=== PATIENT | female | born 1950 | race Caucasian/White ===

== ENCOUNTER 2023-09-10 09:49 | Day surgery (SDC) | payer OTHER ==
[~2023-09-10] VITALS: Ht 147.3 cm; Wt 69.5 kg
[~2023-09-10 09:49] MED LIST: FAMO40TA3 PO; LIDOCAINE 2% 100MG/5ML SDV (FOR ANES.) As Ordered ONE; METO25TA4 PO; MIDAZOLAM INJ 2MG/2ML VIAL As Ordered ONE; ROCURONIUM BROMIDE 50MG/5ML VIAL As Ordered ONE; VIAC1CHW PO; VITA100093 PO; ceFAZolin SOD 2 GM in IV 1 EA IV ONE; fentaNYL 100 MCG/2 ML INJECTION As Ordered ONE; propofoL 200 MG/20 ML VIAL As Ordered ONE
[2023-09-10] MEDS ORDERED: LR 1,000 ML IV SCH ×2 (10:10→12:10)
[2023-09-10 11:02] LABS: BLOOD UREA NITROGEN 18 MG/DL (9-23); CALCIUM LEVEL 9.6 MG/DL (8.3-10.6); CARBON DIOXIDE LEVEL 27 MMOL/L (20-31); CHLORIDE LEVEL 105 MMOL/L (98-107); CREATININE FOR GFR 0.81 MG/DL (0.55-1.30); GLOMERULAR FILTRATION RATE > 60.0 (>39); GLUCOSE, FASTING 115 MG/DL (74-106); POTASSIUM SERUM 3.7 MMOL/L (3.5-5.1); SODIUM LEVEL 140 MMOL/L (136-145)
[2023-09-10] MEDS ORDERED: ACETAMINOPHEN 1000MG 100ML IV BAG As Ordered ONE (11:37)
[2023-09-10] MEDS ORDERED: fentaNYL 100 MCG/2 ML INJECTION As Ordered ONE (11:39)
[2023-09-10] MEDS ORDERED: ONDANSETRON 4MG 2ML VIAL As Ordered ONE (11:41)
[2023-09-10] MEDS ORDERED: KETOROLAC 60MG 2ML VIAL As Ordered ONE (11:42)
[2023-09-10] MEDS ORDERED: METOPROLOL 5 MG/5 ML VIAL As Ordered ONE (12:03)
[2023-09-10] MEDS ORDERED: oxyCODONE 5MG TAB PO PRN (12:10)
[2023-09-10] MEDS ORDERED: HYDROMORPHONE HCL 0.5 MG/ 0.5 ML SYRINGE IV PRN (12:10)
[2023-09-10] MEDS ORDERED: fentaNYL 100 MCG/2 ML INJECTION IV PRN (12:10)
[2023-09-10] MEDS ORDERED: ONDANSETRON 4MG 2ML VIAL IV PRN (12:10)
[2023-09-10] MEDS ORDERED: NS 1,000 ML IV SCH (12:35)
[2023-09-10] MEDS ORDERED: traMADol 50 MG TAB PO PRN ×2 (12:35)
[2023-09-10] MEDS ORDERED: METOCLOPRAMIDE INJ 10MG/2ML VIAL IV PRN (13:20)
[2023-09-10 13:45] VITALS: BP 147/76; TEMP 97.1; O2SAT 95
== END 2023-09-10 13:55 | disposition home or self-care (01) ==
LOC: M SDC 09:49
PROVIDERS: ATTEND Surgery
DX: K80.10 Calculus of gallbladder with chronic cholecystitis without obstruction (principal); I10 Essential (primary) hypertension; K21.9 Gastro-esophageal reflux disease without esophagitis; Z88.5 Allergy status to narcotic agent; Z88.0 Allergy status to penicillin; Z88.1 Allergy status to other antibiotic agents; Z79.899 Other long term (current) drug therapy
CPT/HCPCS: 36415; 47562; 80048; 88304; J0131; J0665; J0690; J1100; J1885; J2250; J2405; J2765; J3010